=== PATIENT | female | born 1980 | race Caucasian/White ===

== ENCOUNTER → 2016-11-01 | Outpatient (CLI) | payer BC ==
[~2016-11-01] MED LIST: MTR600X PO; OXYC-57 PO; PRENTAB26 PO
== END | disposition home or self-care (01) ==
LOC: C.PAPS 14:56
PROVIDERS: ATTEND Obstetrics & Gynecology
DX: Z01.419 Encounter for gynecological examination (general) (routine) without abnormal findings (principal)

== ENCOUNTER → 2016-11-24 | Outpatient (CLI) | payer BC ==
--- NOTE | 2016-11-24 20:06 | DIAGNOSTIC IMAGING REPORT ---
CT SCAN OF THE CHEST WITHOUT IV CONTRAST CLINICAL HISTORY: Postsurgical hypothyroidism. Thyroid cancer. COMPARISON STUDY: CT scan of the neck dated 09/23/2015. TECHNIQUE: CT scan of the thorax was performed from the thoracic inlet to the upper abdomen. Images are reviewed in the axial, sagittal, and coronal planes. IV contrast was not administered for this examination as per the referring clinician. A dose lowering technique was utilized adhering to the principles of ALARA. CT DOSE: 298.98 mGy.cm FINDINGS: Thyroid: The thyroid gland is atrophic versus surgically absent. Surgical clips are present in the thyroid bed. Thoracic aorta: The thoracic aorta is normal in caliber and demonstrates standard 3-vessel arch anatomy. Heart: The heart is normal in size and without pericardial effusion. Lungs and pleural spaces: There is a 3 mm pulmonary nodule in the right middle lobe seen on image #[id number]. The lungs and pleural spaces are otherwise clear. The trachea and central airways are patent. Mediastinum: There is no mediastinal lymphadenopathy. Taryn: Not well assessed without IV contrast. Axillae: There is no axillary lymphadenopathy. Upper abdomen: Partially visualized upper abdominal viscera is within normal limits. Skeletal structures: No lytic or blastic bony lesions are seen. IMPRESSION: 1. The lungs are clear. 2. There is no evidence of intrathoracic metastatic disease. 3. There is a 3 mm right middle lobe pulmonary nodule. This is pathologically indeterminant but of low suspicion. No additional pulmonary nodules are identified. 4. The thyroid gland is atrophic versus surgically absent, and this represents a change from the 09/23/2015 CT. Clinical correlation will be required. Electronically signed by: Jermaine Onofre M.D. 11/24/2016 8:05 PM Dictated Date/Time: 11/24/2016 7:59 PM
== END | disposition home or self-care (01) ==
LOC: C.CTS 19:42
PROVIDERS: ATTEND Internal Medicine Endocrinology, Diabetes & Metabolism
DX: E89.0 Postprocedural hypothyroidism (principal); C73 Malignant neoplasm of thyroid gland

== ENCOUNTER → 2016-12-25 | Outpatient (CLI) | payer BC ==
--- NOTE | 2016-12-25 12:31 | DIAGNOSTIC IMAGING REPORT ---
ULTRASOUND-GUIDED LEFT NECK LYMPH NODE FINE-NEEDLE ASPIRATION BIOPSY CLINICAL HISTORY: L SIDE NECK LUMP,N64.3 COMPARISON STUDY: Outside ultrasound dated 10/17/2016 FINDINGS: A timeout was performed. The risks of the procedure were explained the patient and informed consent was obtained. Under ultrasound guidance, the small lymph node of concern at the base of the left neck was sampled x2 with a 25-gauge needle. There were no immediate complications. Final pathology is pending. IMPRESSION: Successful ultrasound-guided fine-needle aspiration biopsy of a small lymph node at the base of the left neck. Electronically signed by: Soy Stanley M.D. 12/25/2016 12:30 PM Dictated Date/Time: 12/25/2016 12:28 PM
== END | disposition home or self-care (01) ==
LOC: C.ULTR 10:58
PROVIDERS: ATTEND Physician Assistant
DX: C73 Malignant neoplasm of thyroid gland (principal); R59.1 Generalized enlarged lymph nodes